=== PATIENT | male | born 1995 | race Caucasian/White ===

== ENCOUNTER 2017-04-28 00:04 | Emergency (ER) | payer OTHER ==
[~2017-04-28] VITALS: Ht 160 cm; Wt 70.0 kg
[2017-04-28 00:08] VITALS: Ht 160 cm; Wt 70.0 kg
[2017-04-28] MEDS ORDERED: HALOPERIDOL 5 MG INJ IM ONE (01:00)
[2017-04-28] MEDS ORDERED: LORAZEPAM 2 MG INJ IM ONE ×2 (01:00→02:30)
--- NOTE | 2017-04-28 01:18 | RADRPT ---
PROCEDURE: CT Brain without contrast. CLINICAL INDICATION: Trauma TECHNIQUE: A CT of the brain was performed utilizing axial imaging from the skull base through the vertex without IV contrast. Multiplanar reformatted images were made. Images were reviewed on a [employer] workstation. The CTDIvol is 44.19 mGy and the DLP is 810.25 mGycm. The patient's head is obliqu papo oriented in the scanner. One or more the following dose reduction techniques were utilized: Automated exposure control, adjus tment of the mA/ or kV according to patient's size, or use of iterative reconstruction technique. COMPARISON: None FINDINGS: There is no intracranial hemorrhage, mass effect, or midline shift. No extra-axial fluid collection is seen. The ventricles and sulci are normal in size and configuration. The density of the brain is normal, and the jackson white matter differentiation appears well-preserved. No skull fracture seen. 9 mm likely retention cyst in left maxillary sinus. IMPRESSION: 1. No evidence of acute intracranial pathology. 2. The brain is normal in appearance. RPTAT: HJES .Daquan Liu MD, MD Date Time Electronically viewed and signed by .Daquan Liu MD, on 04/28/2017 01:18 .S/
--- NOTE | 2017-04-28 01:26 | RADRPT ---
PROCEDURE: CT Cervical Spine. CLINICAL INDICATION: Trauma TECHNIQUE: A CT of the cervical spine was performed utilizing thin section axial images from the skull base through the thoracic inlet. Sagittal and coronal reformatted images were made. The CTDI vol is 22.39 mGy and the DLP is 633.79 mGycm. The patient's is obliquely oriented in the scanner. One or more the following dose reduction techniques were utilized: Automated exposure control, adjus tment of the mA/ or kV according to patient's size, or use of iterative reconstruction technique. COMPARISON: None. FINDINGS: There is a normal lordosis of the cervical spine. No vertebral body subluxation is seen. No fractu res are evident. The posterior elements are normally aligned. The surrounding soft tissues are nor mal in appearance. The intervertebral discs are normal in height. No significant disk bulge or pro trusion is seen. The central canal and foramina are adequately patent at all levels. IMPRESSION: Negative CT scan of the cervical spine. RPTAT: HJES .Daquan Liu MD, MD Date Time Electronically viewed and signed by .Daquan Liu MD, on 04/28/2017 01:26 .S/
[2017-04-28] MEDS ORDERED: LIDOCAINE 1% (MDV) 20 ML INJ SC ONE (01:30)
[2017-04-28] MEDS ORDERED: DIPHTH/TET/ACEL PERTUSS (ADULT) 0.5 ML VIAL IM* ONE (01:30)
--- NOTE | 2017-04-28 01:33 | RADRPT ---
PROCEDURE: CT Lumbar Spine. CLINICAL INDICATION: Trauma TECHNIQUE: The study was performed on a multidetector CT scanner. Spiral axial 1 mm images were o btained through the lumbar spine and reformatted at 2.5 mm slice thickness. Sagittal and coronal ref ormations were created from the raw axial data. The images were reviewed on a PACS workstation. The administered radiation dose was CTDI vol = 36.89 mGy, DLP = 1427.84 mGy-cm. There is patient motion during imaging of the left iliac bone which limits evaluation. One or more the following dose reduction techniques were utilized: Automated exposure control, adjus tment of the mA/ or kV according to patient's size, or use of iterative reconstruction technique. COMPARISON: No prior studies are available for comparison. FINDINGS: The vertebral bodies demonstrate normal height, alignment and osseous mineralization. Fractures of l eft transverse processes of L3 and L4 vertebrae. The abdominal aorta is unremarkable. Hepatic steatosis is apparent. T12-L1: The disc and neuroforamina are unremarkable. L1-L2: The disc and neuroforamina are unremarkable. L2-L3: The disc and neuroforamina are unremarkable. L3-L4: The disc and neuroforamina are unremarkable. L4-L5: The disc and neuroforamina are unremarkable. L5-S1: The disc and neuroforamina are unremarkable. There is a nondisplaced fracture of the right sacral ala. IMPRESSION: Nondisplaced fracture of right sacral ala. Fractures of left transverse processes of L3 and L4 vert ebrae. Patient motion during imaging of the left iliac bone which limits evaluation . Hepatic steato sis apparent. RPTAT: HJES .Daquan Liu MD, MD Date Time Electronically viewed and signed by .Daquan Liu MD, MD on 04/28/2017 01:33 .S/
[2017-04-28 03:18] LABS: ADD SCAN DIFF NO
[2017-04-28 03:19] LABS: BASOPHIL # 0.1 10^3/ul (0.0-0.1); BASOPHILS % 0.3 % (0.0-2.0); HEMATOCRIT 42.7 % (42.0-52.0); HEMOGLOBIN 14.6 g/dl (14.0-18.0); LYMPHOCYTES # 1.8 10^3/ul (0.8-2.9); LYMPHOCYTES % 7.8 % (15.0-51.0); MEAN CORPUSCULAR HEMOGLOBIN 30.3 pg (29.0-33.0); MEAN CORPUSCULAR HGB CONC 34.2 g/dl (32.0-37.0); MEAN CORPUSCULAR VOLUME 88.6 fl (82.0-101.0); MEAN PLATELET VOLUME 10.7 fl (7.4-10.4); MONOCYTE # 1.3 10^3/ul (0.3-0.9); MONOCYTES % 5.5 % (0.0-11.0); NEUTROPHIL # 19.4 10^3/ul (1.6-7.5); NEUTROPHILS % 84.6 % (39.0-77.0); PLATELET COUNT 261 10^3/UL (140-415); RED BLOOD COUNT 4.82 10^6/ul (4.70-6.10); RED CELL DISTRIBUTION WIDTH 12.5 % (11.5-14.5); WHITE BLOOD COUNT 22.9 10^3/ul (4.8-10.8)
[2017-04-28 03:24] LABS: ADD UMIC YES; URINE BILIRUBIN (Dip) NEGATIVE (NEGATIVE); URINE BLOOD (Dip) 3+ (NEGATIVE); URINE COLOR LT. YELLOW (YELLOW); URINE GLUCOSE (Dip) NEGATIVE (NEGATIVE); URINE KETONES (Dip) NEGATIVE (NEGATIVE); URINE LEUKOCYTE ESTERASE (Dip) NEGATIVE (NEGATIVE); URINE NITRITE (Dip) NEGATIVE (NEGATIVE); URINE TOTAL PROTEIN (Dip) 2+ (NEGATIVE); URINE UROBILINOGEN (Dip) 0.2 E.U./dL (0.1-1.0)
[2017-04-28 03:39] LABS: COCAINE Positive (NEGATIVE)
[2017-04-28 03:40] LABS: ALANINE AMINOTRANSFERASE 540 IU/L (13-69); ALBUMIN 5.3 g/dl (3.3-4.9); ALBUMIN/GLOBULIN RATIO 1.65; ALKALINE PHOSPHATASE 90 IU/L (42-121); ANION GAP 19 (8-16); ASPARTATE AMINO TRANSFERASE 480 IU/L (15-46); BILIRUBIN,INDIRECT 0.3 mg/dl (0-1.1); BILIRUBIN,TOTAL 0.3 mg/dl (0.2-1.3); BLOOD UREA NITROGEN 12 mg/dl (7-20); CALCIUM 9.3 mg/dl (8.4-10.2); CARBON DIOXIDE 20 mmol/L (21-31); CHLORIDE 108 mmol/L (97-110); CREATININE 0.88 mg/dl (0.61-1.24); GLUCOSE 157 mg/dl (70-220); POTASSIUM 3.4 mmol/L (3.5-5.1); SODIUM 144 mmol/L (135-144); TOTAL PROTEIN 8.5 g/dl (6.1-8.1)
[2017-04-28 03:50] LABS: ACETAMINOPHEN < 10.0 ug/ml (10.0-30.0); BARBITURATES Negative (NEGATIVE); BENZODIAZEPINES Negative (NEGATIVE); CANNABINOIDS Negative (NEGATIVE); OPIATES Negative (NEGATIVE); SALICYLATE < 1.0 mg/dl (5.0-30.0)
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
[2017-04-28 03:54] LABS: SQUAMOUS EPITHELIAL CELL,UR FEW
[2017-04-28 03:55] LABS: BACTERIA,URINE OCCASIONAL
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
[2017-04-28] MEDS ORDERED: ALBUTEROL 0.5% (NEB) 2.5 MG/0.5 ML AMP INH STA (12:56)
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
[2017-04-28] MEDS ORDERED: ONDANSETRON (ODT) 4 MG TAB ODT STA (14:51)
[2017-04-28] MEDS ORDERED: HYDROCODONE/APAP (10/325) TAB PO ONE ×2 (15:00→22:00)
[2017-04-28] MEDS ORDERED: KETOROLAC 60 MG INJ IM STA (18:28)
[2017-04-29] MEDS ORDERED: ACETAMINOPHEN 500 MG TAB PO STA (09:01)
[2017-04-29] MEDS ORDERED: ONDANSETRON (ODT) 4 MG TAB ODT STA (13:19)
[2017-04-29] MEDS ORDERED: HYDROCODONE/APAP (10/325) TAB PO ONE (13:30)
[2017-04-29 19:23] VITALS: BP 117/67; PULSE 76; RESP 18; TEMP 98.2
== END 2017-04-29 19:25 ==
LOC: E/R 00:04
DX: R45.851 Suicidal ideations (principal); R40.2252 Coma scale, best verbal response, oriented, at arrival to emergency department; S32.008A Other fracture of unspecified lumbar vertebra, initial encounter for closed fracture; S32.10XA Unspecified fracture of sacrum, initial encounter for closed fracture; S51.811A Laceration without foreign body of right forearm, initial encounter; R40.2142 Coma scale, eyes open, spontaneous, at arrival to emergency department; R40.2362 Coma scale, best motor response, obeys commands, at arrival to emergency department; R93.0 Abnormal findings on diagnostic imaging of skull and head, not elsewhere classified; W22.8XXA Striking against or struck by other objects, initial encounter; Y92.9 Unspecified place or not applicable
CPT/HCPCS: 12004; 70450; 72125; 72131; 80053; 80306; 80307; 81001; 85025; 90715; J1630; J1885; J2060; Z7610; 36415; 90471; 96372